=== PATIENT | male | born 1960 | race Caucasian/White ===

== ENCOUNTER → 2023-04-23 08:51 | Outpatient (BNVA) | payer OTHER, SELFPAY | PROVIDERS: Family Provider Nurse Practitioner Family; Visit Provider Nurse Practitioner Family | DX: R53.83 Other fatigue (principal); R60.9 Edema, unspecified; I10 Essential (primary) hypertension; E78.5 Hyperlipidemia, unspecified; Z78.9 Other specified health status; G47.30 Sleep apnea, unspecified; M25.50 Pain in unspecified joint; M10.9 Gout, unspecified | CPT/HCPCS: 80053; 80061; 83880; 84550; 85025 ==

== ENCOUNTER 2023-06-08 10:30 | Outpatient (CLI) | payer MEDICARE, SELFPAY | END 2023-06-08 10:31 | disposition home or self-care (01) | PROVIDERS: Family Provider Nurse Practitioner Family; PCP Nurse Practitioner Family; Visit Provider Nurse Practitioner Family | DX: G47.33 Obstructive sleep apnea (adult) (pediatric) (principal); G47.36 Sleep related hypoventilation in conditions classified elsewhere | CPT/HCPCS: G0399 ==

== ENCOUNTER → 2025-01-16 10:46 | Outpatient (BNVA) | payer MEDICARE, SELFPAY | PROVIDERS: PCP Nurse Practitioner Family; Visit Provider Nurse Practitioner Family | DX: I10 Essential (primary) hypertension (principal); I50.9 Heart failure, unspecified; R53.83 Other fatigue | CPT/HCPCS: 80053; 83880; 84403; 84443; 85025 ==

== ENCOUNTER 2025-02-06 15:45 | Outpatient (CLI) | payer MEDICARE, SELFPAY ==
--- NOTE | 2025-02-06 16:00 | USR_ITS ---
PROCEDURE INFORMATION: Exam: US Duplex Bilateral Lower Extremity Arteries Exam date and time: 02/06/2025 4:11 PM Age: 64 years old Clinical indication: Condition or disease; Peripheral vascular disease; Additional info: I73.9 - peripheral vascular disease, unspecified TECHNIQUE: Imaging protocol: Real-time ultrasound scan of the arteries of the bilateral lower extremities with 2-D stapleton scale, color Doppler flow and spectral waveform analysis. Images documented and saved. COMPARISON: No relevant prior studies available. FINDINGS: Right common femoral artery: No occlusion or significant stenosis. Normal waveform. Right superficial femoral artery: No occlusion or significant stenosis. Normal waveform. Right popliteal artery: No occlusion or significant stenosis. Normal waveform. Right calf/foot arteries: No occlusion or significant stenosis in the visualized arteries. Normal waveforms. Dorsalis pedis artery is patent. Left common femoral artery: No occlusion or significant stenosis. Normal waveform. Left superficial femoral artery: No occlusion or significant stenosis. Normal waveform. Left popliteal artery: No occlusion or significant stenosis. Normal waveform. Left calf/foot arteries: No occlusion or significant stenosis in the visualized arteries. Normal waveforms. Dorsalis pedis artery is patent. US/CV arterial duplex [facility] [id number] IMPRESSION: No stenosis or occlusion.
== END 2025-02-06 15:46 | disposition home or self-care (01) ==
LOC: RAD 15:48
PROVIDERS: PCP Nurse Practitioner Family; Visit Provider Nurse Practitioner Family
DX: I73.9 Peripheral vascular disease, unspecified (principal); R60.0 Localized edema
CPT/HCPCS: 93925

== ENCOUNTER → 2025-03-01 15:29 | Outpatient (BNVA) | payer MEDICARE, SELFPAY | PROVIDERS: PCP Nurse Practitioner Family; Visit Provider Nurse Practitioner Family | DX: Z12.5 Encounter for screening for malignant neoplasm of prostate (principal); E78.2 Mixed hyperlipidemia; N50.89 Other specified disorders of the male genital organs | CPT/HCPCS: 81000; 83880; G0103 ==

== ENCOUNTER 2025-03-06 16:06 | Outpatient (CLI) | payer MEDICARE, SELFPAY ==
--- NOTE | 2025-03-06 16:30 | US_ITS ---
WS: [id number] SCROTAL ULTRASOUND REASON FOR EXAM: N50.89 - Other specified disorders of the male genital or... COMPARISON: None available. TECHNIQUE: Grayscale and duplex color Doppler ultrasound examination of the scrotum. FINDINGS: RIGHT: Significant scrotal wall thickening with areas of interstitial fluid accumulation. Right testes measures 4.7 cm x 2.9 cm x 3.2 cm. Significant hydrocele of the right hemiscrotum. Normal blood flow within the testicle. No focal testicular lesion. Right epididymis measures 1.4 cm x 1.6 cm x 2.4 cm. Prominent blood flow. LEFT: Significant scrotal wall thickening with areas of interstitial fluid accumulation Left testes measures 4.8 cm x 2.9 cm x 3.8 cm. Significant hydrocele of the right hemiscrotum. Normal blood flow within the testicle. No focal testicular lesion. Left epididymis measures 0.8 cm x 0.8 cm x 1.6 cm. Prominent blood flow. Small cyst. US/US scrotum [id number] IMPRESSION: Bilateral epididymitis with bilateral hydrocele and significant edematous thick ening of the scrotal mosquera. Probable left epididymal spermatocele.
== END 2025-03-06 16:07 | disposition home or self-care (01) ==
PROVIDERS: PCP Nurse Practitioner Family; Visit Provider Nurse Practitioner Family
DX: N50.89 Other specified disorders of the male genital organs (principal); N45.1 Epididymitis; N43.3 Hydrocele, unspecified; N50.3 Cyst of epididymis
CPT/HCPCS: 76870

== ENCOUNTER 2025-03-09 08:48 | Outpatient (CLI) | payer MEDICARE, SELFPAY ==
[2025-03-09] MEDS: iohexol 350 mg/mL 500 mL Btl (per mL) PO (09:46)
[2025-03-09] MEDS: iohexol 350 mg/mL 500 mL Btl (per mL) IV (10:02)
--- NOTE | 2025-03-09 10:30 | CT_ITS ---
WS: [id number] CT ABDOMEN AND PELVIS WITH CONTRAST HISTORY: R10.9 - Unspecified abdominal pain TECHNIQUE: Imaging performed of the abdomen and pelvis with IV contrast. Single phase imaging of the abdomen. Coronal and sagittal reformats are submitted. All CT scans at [facility] use at least one of these dose optimization techniques: automated exposure control; mA and/or kV adjustment per patient size (includes targeted exams where dose is matched to clinical indication); or iterative reconstruction. IV CONTRAST: Omnipaque 350; 100 mL IV. Oral contrast: Yes. DLP: 1026.49 mGy.cm COMPARISON: None available. Lower thorax: Lung bases are clear. Heart is normal size. No hiatal hernia. Liver/biliary system: Normal size with no intrahepatic dilatation. Gallbladder: Normal. No gallstones or wall thickening. No pericholecystic fluid. Pancreas: Normal size pancreas and pancreatic duct. No adjacent inflammation. Spleen: Normal size spleen. No mass or infarct. Adrenal glands: Normal. Right kidney: There is very subtle area of decreased density in the lower pole cortex measuring 3.6 x 2.5 cm. The remaining kidney is negative. No perinephric stranding. Left kidney: Normal. Aorta: Mild atherosclerosis with no aneurysm. Lymphadenopathy: None. Free fluid: None. GI tract: No obstruction. Normal appendix. Mild diverticular burden in the distal colon. No acute diverticulitis. Abdominal wall: Fat containing umbilical hernia. Pelvis: Normal urinary bladder. Patent fat-containing LEFT inguinal canal. Bones: Unremarkable. CT/CT abdomen pelvis w con* [id number] IMPRESSION: 1. Subtle area of decreased attenuation lower pole RIGHT kidney. No adjacent i nflammation. Recommend ultrasound evaluation to evaluate for mass or area of is chemia. 2. No renal obstruction. 3. Atherosclerosis aorta. 4. Small umbilical hernia. 5. Fat-containing LEFT inguinal hernia. 6. No ascites or adenopathy. 7. Distal colonic diverticulosis.
== END 2025-03-09 08:49 | disposition home or self-care (01) ==
LOC: RAD 08:49
PROVIDERS: PCP Nurse Practitioner Family; Visit Provider Nurse Practitioner Family
DX: R10.9 Unspecified abdominal pain (principal); R93.421 Abnormal radiologic findings on diagnostic imaging of right kidney; I70.0 Atherosclerosis of aorta; K42.9 Umbilical hernia without obstruction or gangrene; K40.90 Unilateral inguinal hernia, without obstruction or gangrene, not specified as recurrent; K57.30 Diverticulosis of large intestine without perforation or abscess without bleeding
CPT/HCPCS: 74177

== ENCOUNTER 2025-03-28 06:52 | Outpatient (CLI) | payer MEDICARE, SELFPAY ==
--- NOTE | 2025-03-28 07:15 | USCV_ITS ---
John Alonso Age: 64 Gender: M : 1960 Exam Date: 03/28/2025 07:19 Ordering Phys: Melissa Mariano-C CHIEF CLIENT OFFICER Technologist: EDELMIRA Exam Location: [facility] [place] Indication: Edema BP: 120 / 70 HR: 81 Rhythm: Sinus Technical Quality: Adequate MEASUREMENTS (Male / Female) Normal Values 2D ECHO LV Diastolic Diameter PLAX 4.6 cm 4.2 - 5.9 / 3.9 - 5.3 cm IVS Diastolic Thickness 1.2 cm 0.6 - 1.0 / 0.6 - 0.9 cm IVS Systolic Thickness 2.2 cm LVPW Diastolic Thickness 1.5 cm 0.6 - 1.0 / 0.6 - 0.9 cm LVPW Systolic Thickness 2.3 cm LVOT Diameter 2.0 cm LV Ejection Fraction 2D Teich 53.4 % LV Ejection Fraction MOD 4C 58.8 % LV Ejection Fraction MOD 2C 45.4 % LV Ejection Fraction 2C AL 47.1 % LA Diameter 4.0 cm RA Systolic Volume 4C AL 45.4 ml RA Systolic Volume 4C MOD 45.7 ml LA Sys Volume AL 40.4 cm cubed LA Sys Volume Index AL 16.0 cm cubed/m squared Aorta at Sinotubular Diameter 3.0 cm M-MODE LA Ao Ratio MM 1.1 AV Cusp Separation MM 1.8 cm DOPPLER AV Peak Velocity 116.0 cm/s LVOT Peak Velocity 77.0 cm/s AV Area Cont Eq vti 2.3 cm squared AV Area Cont Eq pk 2.1 cm squared MV Peak Velocity 99.0 cm/s MV Area PHT 4.1 cm squared Mitral E to A Ratio 0.8 TR Peak Velocity 95.0 cm/s TR Peak Gradient 3.6 mmHg TV Peak E Velocity 75.0 cm/s PV Peak Velocity 111.0 cm/s FINDINGS Left Ventricle Normal left ventricular size, systolic function and wall thickness, with no regional wall motion abnormalities. Left ventricular ejection fraction is estimated at 60 %. Grade I/IV diastolic dysfunction (abnormal relaxation filling pattern), normal to mildly elevated filling pressures. Right Ventricle The right ventricle is normal in size and function. Right Atrium The right atrium is normal in size. Left Atrium The left atrium is normal in size. Mitral Valve Moderately thickened mitral valve. Severe mitral annular calcification. No mitral valve stenosis. Trace mitral valve regurgitation. Aortic Valve Mild aortic valve calcification. No aortic valve stenosis. Trace aortic valve regurgitation. Tricuspid Valve Structurally normal tricuspid valve without significant stenosis or regurgitation. Pulmonary artery systolic pressure is normal. Pulmonic Valve Structurally normal pulmonic valve without significant stenosis. There is no pulmonic regurgitation. Pericardium Normal pericardium without effusion. Aorta Normal ascending aorta dimension. IVC The inferior vena cava appears normal. CONCLUSIONS Normal left ventricular size, systolic function and wall thickness, with no regional wall motion abnormalities. Left ventricular ejection fraction is estimated at 60 %. Grade I/IV diastolic dysfunction (abnormal relaxation filling pattern), normal to mildly elevated filling pressures. Moderately thickened mitral valve. Severe mitral annular calcification. No mitral valve stenosis. Trace mitral valve regurgitation. Mild aortic valve calcification. No aortic valve stenosis. Trace aortic valve regurgitation. There is no pericardial effusion. Right atrial pressure is around 5 mm of mercury. Carmen Gordon MD (Electronically Signed) Final Date: 30 March 2025 15:07 S
--- NOTE | 2025-03-28 08:45 | US_ITS ---
WS: [id number] RENAL ULTRASOUND HISTORY: R93.429 - Abnormal radiologic findings on diagnostic imag... COMPARISON: CT 03/09/2025 TECHNIQUE: 2-D and color Doppler imaging of the kidney submitted. Right kidney: 11.7 cm x 5.1 cm x 5.5 cm. Cortex: 1.5 cm Normal echogenicity with no hydronephrosis or mass. Left kidney: 11.6 cm x 4.4 cm x 5.2 cm. Cortex: 1.4 cm Normal echogenicity with no hydronephrosis or mass. Aorta: Normal. Urinary Bladder: Normal distention. US/US renal BI* [id number] IMPRESSION: Normal renal ultrasound. No mass or abnormality in the RIGHT kidney as suggested by ultrasound.
== END 2025-03-28 06:53 | disposition home or self-care (01) ==
PROVIDERS: PCP Nurse Practitioner Family; Visit Provider Nurse Practitioner Family
DX: R93.421 Abnormal radiologic findings on diagnostic imaging of right kidney (principal); R60.9 Edema, unspecified; I34.0 Nonrheumatic mitral (valve) insufficiency; I34.81 Nonrheumatic mitral (valve) annulus calcification; I70.0 Atherosclerosis of aorta; I35.1 Nonrheumatic aortic (valve) insufficiency; I51.89 Other ill-defined heart diseases
CPT/HCPCS: 76770; 93306

== ENCOUNTER → 2025-04-03 11:09 | Outpatient (BNVA) | payer MEDICARE, SELFPAY | PROVIDERS: PCP Nurse Practitioner Family; Referring Provider Nurse Practitioner Family; Visit Provider Internal Medicine Cardiovascular Disease | DX: I50.32 Chronic diastolic (congestive) heart failure (principal); I70.0 Atherosclerosis of aorta; I45.10 Unspecified right bundle-branch block; R00.0 Tachycardia, unspecified; F17.290 Nicotine dependence, other tobacco product, uncomplicated; R07.9 Chest pain, unspecified; I50.9 Heart failure, unspecified; E78.2 Mixed hyperlipidemia | CPT/HCPCS: 93005; 99204 ==

== ENCOUNTER 2025-04-13 07:54 | Outpatient (CLI) | payer MEDICARE, SELFPAY ==
[2025-04-13 08:08] VITALS: BMI 34.2
--- NOTE | 2025-04-13 08:13 | NMCV_ITS ---
NM ana perf SPECT r/s* [id number] John Alonso Age: 64 Gender: M : 1960 Exam Date: 04/13/2025 08:46 Ordering Phys: Kayode Robret MD ([email or web address]) Technologist: TAPAN Cobian Exam Location: [facility] Indications: cp STRESS TEST Please see separate stress test report in [facility] for full findings IMAGE PROTOCOL Rest/Stress 1 Exercise Day Radiopharmaceutical Dose (mCi) Administration Site Administered by Rest: Tc-99m 10.7 IV Neena Henson [employer] Sestamibi Stress:Tc-99m 33 IV Neena Henson, [employer] Sestamibi Rest: 13-Apr-2025 60 Discovery 630 Stress: 13-Apr-2025 30 Discovery 630 Radiopharmaceutical was injected at 85 % maximum heart rate. Images obtained in supine and prone position. SPECT RESULTS Technical Quality: Good Raw Data Analysis: Normal Image Corrections: No attenuation or motion correction applied Summed Stress Score: 1 Summed Rest Score: 0 Summed Difference Score: 1 PERFUSION FINDINGS A small area of slightly decreased tracer uptake was noted in the mid inferolateral region. Some reversibility was noted in this area. FUNCTIONAL RESULTS (calculated via Gated SPECT) Stress Image LV EF (%): 66 Stress EDV (mL):107 TID: 0.81 Stress ESV (mL):36 FUNCTIONAL FINDINGS: Segmental wall motion analysis revealing no gross wall motion abnormalities IMPRESSIONS 1. Myocardial perfusion imaging revealing a small area of slight reversible defect in the mid inferolateral segment, suggesting ischemia in the distribution of the left circumflex artery 2. Normal LV ejection fraction of 66%. 3. LV wall motion analysis revealing no gross wall motion abnormalities. 4. Normal LV volume No similar previous studies are available for comparison Dr Angel Busch MD [facility] (Electronically Signed) Final Date: 13 April 2025 16:27 S
--- NOTE | 2025-04-13 08:13 | ECG_ITS ---
[employer] Sy-[employer] Test Date: 2025-04-13 Pat Name: John Alonso Department: Room: Gender: Male Disability Attorney: : 1960 Requested By: Kayode Robert Order Number: [id number] Ruiz MD: Angel Busch M.D. Interpretive Statements Lung unchanged pre/post procedure; Intraprocedure shortess of breath; Symptoms resoled by discharge PROCEDURE: The baseline electrocardiogram showed normal sinus rhythm with normal ST-Ts poor R wave progression. Left axis deviation. Nonspecific IVCD.. At the baseline, the patient's blood pressure was 131/82 mm Hg with a heart rate of 74. The patient exercised for 6 minutes and 47 seconds on a standard Sekou protocol. Patient attained a maximum heart rate of 134 beats per minute(87% of the maximum predicted heart rate) with a blood pressure at the peak exercise of 184/81 mm Hg. The EKG at the peak exercise revealed no significant changes. Patient did not have any chest pain or any significant arrhythmis with the exercise Sestamibi was injected 1 minute prior to the peak exercise-33 mCi During the recovery phase, there were no new changes. Blood pressure at the end of the recovery phase was 155/95 mm Hg with a heart rate of 103 per minute. CONCLUSION: 1. No significant EKG changes with the [treadmill exercise 2. No exercise-induced chest pain or cardiac arrhythmia 3. Slightly impaired exercise tolerance, attained a maximum of 7.0 METs 4. Sestamibi/Sestamibi perfusion results pending; see separate report. Electronically Signed On 04-18-2025 10:03:39 CDT by Angel Busch M.D. [email or web address]
[2025-04-13 09:54] VITALS: BP 155/95; PULSE 102
== END 2025-04-13 07:55 | disposition home or self-care (01) ==
LOC: CDL 07:56
PROVIDERS: PCP Nurse Practitioner Family; Visit Provider Internal Medicine Cardiovascular Disease
DX: I50.9 Heart failure, unspecified (principal)
CPT/HCPCS: 36415; 78452; 93017; A9500

== ENCOUNTER 2025-04-25 16:24 | Outpatient (CLI) | payer MEDICARE, SELFPAY | END 2025-04-25 16:25 | disposition home or self-care (01) | LOC: SLEEP 16:25 | PROVIDERS: PCP Nurse Practitioner Family; Referring Provider Nurse Practitioner Family; Visit Provider Internal Medicine Pulmonary Disease | DX: G47.33 Obstructive sleep apnea (adult) (pediatric) (principal); G47.36 Sleep related hypoventilation in conditions classified elsewhere | CPT/HCPCS: G0399 ==

== ENCOUNTER → 2025-05-31 15:28 | Outpatient (BNVA) | payer MEDICARE, SELFPAY | PROVIDERS: PCP Nurse Practitioner Family; Visit Provider Internal Medicine Cardiovascular Disease | DX: I50.9 Heart failure, unspecified (principal); E78.2 Mixed hyperlipidemia | CPT/HCPCS: 80048; 80061; 83880 ==

== ENCOUNTER → 2025-06-05 09:57 | Outpatient (BNVA) | payer MEDICARE, SELFPAY | PROVIDERS: PCP Nurse Practitioner Family; Visit Provider Internal Medicine Cardiovascular Disease | DX: I11.0 Hypertensive heart disease with heart failure (principal); I50.30 Unspecified diastolic (congestive) heart failure; I70.0 Atherosclerosis of aorta; E78.5 Hyperlipidemia, unspecified; G47.33 Obstructive sleep apnea (adult) (pediatric); Z99.89 Dependence on other enabling machines and devices; Z72.0 Tobacco use; R94.39 Abnormal result of other cardiovascular function study | CPT/HCPCS: 99214 ==

== ENCOUNTER 2025-07-17 13:30 | Outpatient (CLI) | payer MEDICARE, SELFPAY ==
--- NOTE | 2025-07-17 13:15 | USCV_ITS ---
Gavin, John Age: 65 Gender: M : 1960 Exam Date: 07/17/2025 14:04 Ordering Phys: Melissa Mariano Technologist: NINA [place] [facility] [place]: hypertension Aortic Velocity @ SMA (cm/s) 60 RIGHT KIDNEY LEFT KIDNEY Velocity (cm/s) Velocity (cm/s) Sys/Mcintyre Sys/Mcintyre Resistive Index Resistive Index 83.0 / 25.4 0.69 Proximal Renal Artery 19.4 / 12.0 0.38 34.4 / 15.1 0.56 Mid Renal Artery 18.7 / 11.5 0.38 78.5 / 23.7 0.70 Distal Renal Artery 19.1 / 11.5 0.39 45.9 / 20.7 0.55 Hilar 20.5 / 6.5 0.67 19.9 / 7.1 0.64 Upper Pole 12.4 / 6.3 0.50 19.1 / 6.1 0.68 Mid Pole 11.8 / 6.7 0.43 16.3 / 7.3 0.55 Lower Pole 20.1 / 13.8 0.31 1.38 Renal Aortic Ratio 3.09 Accleration Time (sec) 0.04 Hilar 0.14 0.06 Upper Pole 0.10 0.05 Mid Pole 0.12 0.05 Lower Pole 0.08 11.9 Kidney Length (cm) 10.7 FINDINGS Comparaison: CT 03/09/25 No evidence of abdominal aortic aneurysm. Technically poor evaluation of renal arteries. Venous contamination in the arteries flow. Abnormal left renal to aorta ratio but no elevation of renal artery velocity. CONCLUSIONS Technically limited evaluatin renal arteries. Recommend CTA renal arteries. Dr. Little Ruiz DO (Electronically Signed) Final Date: 17 July 2025 15:13 S
== END 2025-07-17 13:31 | disposition home or self-care (01) ==
LOC: RAD 13:31
PROVIDERS: PCP Nurse Practitioner Family; Visit Provider Nurse Practitioner Family
DX: I10 Essential (primary) hypertension (principal)
CPT/HCPCS: 93975

== ENCOUNTER 2025-07-27 15:26 | Outpatient (CLI) | payer MEDICARE, SELFPAY ==
--- NOTE | 2025-07-27 15:30 | CTR_ITS ---
PROCEDURE INFORMATION: Exam: CTA Abdomen and Pelvis With Contrast Exam date and time: 07/27/2025 4:14 PM Age: 65 years old Clinical indication: Primary hypertension; Additional info: I10 - essential (primary) hypertension, renal arteries TECHNIQUE: Imaging protocol: Computed tomographic angiography of the abdomen and pelvis with contrast. Exam focused on the arteries. 3D rendering (Not supervised by radiologist): MIP and/or 3D reconstructed images were created by the technologist. Radiation optimization: All CT scans at this facility use at least one of these dose optimization techniques: automated exposure control; mA and/or kV adjustment per patient size (includes targeted exams where dose is matched to clinical indication); or iterative reconstruction. Contrast material: OMNIPAQUE 350; Contrast volume: 100 ml; Contrast route: INTRAVENOUS (IV); COMPARISON: CT abdomen pelvis w con* [id number] 03/09/2025 9:59 AM RADIATION DOSE METRICS: Total DLP (mGy-cm): 882.29 FINDINGS: Lungs: Small pulmonary cysts in the visualized lungs. Mild bibasilar atelectasis. Aorta: Intimal calcifications. Mild ectasia of the infrarenal aorta. No aortic aneurysm. No aortic dissection. Celiac and mesenteric arteries: No occlusion or significant stenosis. Renal arteries: Severe stenosis of the left renal artery ostium. The right renal artery is patent without significant stenosis or occlusion. 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 No occlusion or significant stenosis. Left iliac arteries: Fusiform aneurysmal dilatation of the common iliac artery up to 1.8 cm. No occlusion or significant stenosis. Liver: Unremarkable. No abnormally enhancing liver lesions. Gallbladder and biliary ducts: Unremarkable. No radiopaque cholelithiasis. No biliary ductal dilatation. Pancreas: Unremarkable. No pancreatic ductal dilatation. Spleen: Unremarkable. Adrenal glands: Mild nonspecific bilateral adrenal thickening. Kidneys and ureters: The left kidney is asymmetrically small and hypoenhancing. No hydronephrosis. Bilateral renal cortical hypoattenuating foci too small to characterize. Stomach and bowel: The stomach is unremarkable. No bowel obstruction. Appendix: Appendix is unremarkable. Intraperitoneal space: No ascites or intraperitoneal free air. Lymph nodes: No abdominal or pelvic adenopathy. Urinary bladder: The urinary bladder is underdistended, limiting its evaluation. Reproductive: Prostate gland is unremarkable. Bones/joints: No acute fracture. Degenerative changes of the spine and left sacroiliac joint. Soft tissues: Small bilateral fat-containing inguinal hernias. Small fat-containing umbilical hernia. CT/CT angio abdomen pelvis [id number] IMPRESSION: 1. Severe left renal artery stenosis at the ostium. 2. No right renal artery stenosis.
[2025-07-27 16:05] LABS: Blood Urea Nitrogen 22 mg/dL (8-23)
[2025-07-27] MEDS: iohexol 350 mg/mL 500 mL Btl (per mL) IV (16:21)
== END 2025-07-27 15:27 | disposition home or self-care (01) ==
LOC: RAD 15:26
PROVIDERS: PCP Nurse Practitioner Family; Visit Provider Nurse Practitioner Family
DX: I10 Essential (primary) hypertension (principal); I70.1 Atherosclerosis of renal artery; J98.4 Other disorders of lung; J98.11 Atelectasis; I70.0 Atherosclerosis of aorta; I77.819 Aortic ectasia, unspecified site; I72.8 Aneurysm of other specified arteries; E27.8 Other specified disorders of adrenal gland; N28.89 Other specified disorders of kidney and ureter; M47.9 Spondylosis, unspecified; M46.1 Sacroiliitis, not elsewhere classified; K40.20 Bilateral inguinal hernia, without obstruction or gangrene, not specified as recurrent; K42.9 Umbilical hernia without obstruction or gangrene
CPT/HCPCS: 74174; 82565; 84520

== ENCOUNTER 2025-08-09 05:49 | Outpatient (CLI) | payer MEDICARE, SELFPAY ==
[2025-08-09] VITALS (16 sets, daily range): BP systolic 128–164; BP diastolic 60–95; PULSE 61–82; RESP 16–21; TEMP 36.6; O2SAT 92–97; BMI 33.9
--- NOTE | 2025-08-09 06:00 | XACV_ITS ---
Exam Room: 2 Ht: 188 cm Wt: 120 kg BSA: 2.54 m2 Gender: Male : 1960 Any Known Allergies: No known allergies Exam Priority: Routine Procedure(s): Procedure Description: Diagnostic procedure Procedure Description: Left Heart Catheterization Procedure Description: Coronary Angiography Procedure Description: Pressure Wire Diagnostic Cath Status: Elective Diagnostic Findings * INDICATION: Congestive heart failure/abnormal stress test. * Left Main is large sized. No significant stenosis. * Circumflex has mild luminal irregularities. * Right Coronary Artery has mild to moderate luminal irregularities. * Mid Left Anterior Descending: moderate 50% stenosis, ZHANNA: 3 flow. * Coronary angiography shows right dominance. PCI Status: Elective Interventional Findings * Procedure detail: We engaged left main artery with XB 3.5 guide catheter. IV heparin was administered to maintain anticoagulation. iFR of mid LAD was performed that showed a value of 0.96. As this is non-ischemic, we proceeded with medical therapy. Patient left the laborer/grade check in a stable condition. . Conclusions 1. Moderate mid LAD stenosis. S/p iFR that was non-ischemic. Recommendations * Aggressive medical therapy for coronary artery disease. * Outpatient cardiology follow up in 2-4 weeks. Interventional RX Recommendation: medical therapy and/or counseling Anticoagulation: Heparin Pressures Phase:Rest AO : 113 / 81 ( 98 ) @ 8:00:00 AM 131 / 72 ( 96 ) @ 8:04:00 AM 135 / 74 ( 99 ) @ 8:04:00 AM LV : 150 / -13 / 13 @ 8:04:00 AM 142 / -10 / 13 @ 8:04:00 AM Valves Phase:DefaultPhase AV : 7.0 @ 8:16:36 AM AV Mean Gradient: 20.0 @ 8:16:36 AM Clinical Evaluation EBL: 5mL-10mL Procedural Details Procedure Consent Obtained. Pre-Procedure Time Out. Identified patient by full name and date of as verbalized by the patient/guarantor. Does the consent match the physician's order: Yes. Accurate & Complete Informed Consent: Yes. Inpatient/Outpatient History & Physical on Chart: Yes. If H&P is completed, is and addenduem needed: No. Visualize and Verify Site with Patient/Guarantor: N/A. Relevant Radiology Images available: Yes. The risks, benefits, and alternatives of sedation and/or procedure were discussed by physician. The patient agrees to continue. Procedure started. [facility] Clinical Fraility Score: 3: Managing Well. 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 Chest Pain Symptom Assessment: Typical Angina Symptoms. Cardiovascular Instability: No. Correct patient, site and procedure confirmed by cath team. PERRLA. 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 Lungs clear x 5 lobes. IV Site on Arrival: 20 gauge in the right anticubital. IV Fluids: 0.9% NaCl at KVO. 0 mL infused prior to laborer/grade check. Pre Procedural Pulses: bilateral dorsalis pedis was Doppled. Pre Procedural Pulses: bilateral posterior tibial was Doppled. Pre Procedural Pulses: bilateral radial was 3+. Oxygen started at 2liters/min via nasal canula. right groin was prepped with chloroprep then draped in the usual sterile fashion. right radial was prepped with chloroprep then draped in the usual sterile fashion. Physician notified. Baseline sample Acquired. HR: 68 BPM. Patient's family unavailable. The patient requests that Dr. Hughes call his contact, Delta, at [phone] at the completion of the procedure. Equipment: 6F - Radial. Cardiac Cath Pack. ACIST Manifold Kit Model BT 2000. Heparinized Saline (2 units/mL), 1000 mL bag. Physician arrived. Physician scrubbed in. Immediate Pre-Procedure Time Out. Correct Patient: Yes; Correct Procedure: Yes; Correct Site: Yes; Correct Patient Position: Yes; Correct Supplies: Yes; Dried Flammable Prep: Yes; Blood Products Available: No. Lidocaine 1% infiltrated to the right radial. Arterial access obtained. Multiple views taken of left coronary artery. Catheter redirected to the RCA. Multiple views taken of right coronary artery. Catheter redirected to the LV. EDP Sample taken: LV 150/-14,13; HR: 69 BPM; SpO2: 97%. Pullback taken: LV 142/-11,13; AO 131/72(96); Mean: 20mmHg, Peak to Peak: 7mmHg, SEP: 7sec/min; HR: 67 BPM; SpO2: 97%. Catheter removed over the exchange J wire. 6 indonesian XB 3.5 guide catheter was inserted over the exchange J wire. iFR guidewire was advanced through the guide catheter to lesion in the mid LAD. iFR spot of the mid LAD = 0.96 with a pullback of 0.96. iFR wire out. Guide catheter out over the exchange wire. Dr. Hughes scrubbed out. A TR Band was successful obtaining hemostatsis at the Right Radial artery insertion site. Post Procedure: Pulses reassessed and unchanged. PERRLA. 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 No VTE prophylaxis required. Medication's Wasted: Lidocaine 1% = 18 mL. Medication's Wasted: Nitro = 49.8 mg. Medication's Wasted: Heparin = 1000 units. Medication's Wasted: Other = Versed 1 mg. Medication's Wasted: Other = Fentanyl 50 mcg. Total IV fluids: 264 mL. Post-op diagnosis: Moderate mid LAD stenosis with normal iFR. Complications: none. Estimated blood loss: 5mL-10mL. Responsiveness - Normal response to verbal stimuli; alert and oriented, PERRLA. Vital chart was stopped. Airway - Unaffected, no intervention required; spontaneous ventilation. Circulation: W/N/L, pulses unchanged. Nausea/Vomiting: No. Procedure completed. Patient transferred by wheelchair to CPRU. Access Site Site: Right Radial artery Sheath Size: 6 Fr Hemostasis Method: TR Band Hemostasis Success: Successful Procedure Medications Start: 7:54 AM Stop: 7:54 AM Medication: 0.9% Saline Amount: 250 ml Route: I.V. bolus Start: 7:54 AM Stop: 7:54 AM Medication: Versed Amount: 1 mg Route: I.V. Start: 7:54 AM Stop: 7:54 AM Medication: Fentanyl Amount: 50 mcg Route: I.V. Start: 7:57 AM Stop: 7:57 AM Medication: Nitrogylcerin Amount: 200 mcg Route: I.A. Start: 8:00 AM Stop: 8:00 AM Medication: Heparin Amount: 5000 units Route: I.V. Start: 8:05 AM Stop: 8:05 AM Medication: Heparin Amount: 5000 units Route: I.V. I, the attending physician, have reviewed and verified all procedure medications. Yes, all medications given per verbal order History/Risk Factors Hypertension: Yes Dyslipidemia: Yes Peripheral Arterial Disease (PAD): No Myocardial Infarction ([place]): No Obesity: Yes Renal Disease: No Tobacco Use: Current/Recent(w/in 1 year) Prior Interventions PCI: No CABG: No Valve Surgery: No Report Signatures Finalized by Ari Hughes MD on 08/26/2025 10:30 AM
[2025-08-09 06:19] LABS: Hematocrit 48.6 % (37-53); Hemoglobin 16.00 g/dL (11.27-16.99); Mean Corpuscular HGB Conc 32.9 g/dL (30-55); Mean Corpuscular Hemoglobin 27.9 pg (27-33); Mean Corpuscular Volume 84.7 fl (82-101); Nucleated Red Blood Cells % 0 %; Platelet Count 248 10^3/cmm (157-399); Red Blood Count 5.74 10^6/uL (3.85-5.65); White Blood Count 7.92 10^3/uL (3.29-11.43)
[2025-08-09 06:37] LABS: Anion Gap 14.6 (5-19); Blood Urea Nitrogen 26 mg/dL (8-23); Calcium 9.6 mg/dL (8.5-10.5); Carbon Dioxide 27 mmol/L (22-29); Chloride 103 mmol/L (98-107); Glucose 106 mg/dL (65-115); Osmolality Calculated 295 mOsm/kg (285-295); Potassium 4.6 mmol/L (3.5-5.1); Sodium 140 mmol/L (136-145)
--- NOTE | 2025-08-09 07:44 | P.HP_ITS ---
Providers/Chief Complaint 2 Primary Care Provider: JUAN JOSE Douglas Chief Complaint: Congestive heart failure History of Present Illness John Alonso is a 65 year old male with diastolic congestive heart failure and abnormal stress test. With diuresis feeling better. Referred for left heart cath Review of Systems 2 Card: Reports: dyspnea on exertion Medications/Allergies Home Medications ?Medication ?Instructions ?Recorded ?Confirmed ?Last Taken ?Type aspirin 81 mg tablet,delayed 81 mg PO DAILY #90 tabs 0 04/03/25 08/09/25 08/09/25 04:30 Rx release (Adult Aspirin Regimen) tadalafil 5 mg tablet (Cialis) 5 mg PO DAILY PRN Sexua l Activity 04/03/25 08/09/25 Unknown History CPAP and supplies #1 ea 05/10/25 08/09/25 Unkn own Rx CPAP (Standard Cpap) 06/05/25 08/09/25 Unknown H istory carvedilol 6.25 mg tablet (Coreg) 6.25 mg PO BID #60 t abs 07/25/25 08/09/25 08/09/25 04:30 Rx lisinopril 5 mg tablet 5 mg PO BID #30 tabs 5 08/09/25 08/09/25 04:30 Rx furosemide 20 mg tablet 20 mg PO DAILY 08/09/2511/2908/08/25 History Allergies Allergy/AdvReac Type Severity Reaction Status Date / Time No Known Allergies Allergy Verified 08/08/25 09:10 PFSH Acute 2 PFSH: Medical History No pertinent past medical history Surgical History No pertinent past surgical history Family History Mother Diabetes Stroke Brother Diabetes Daughter Diabetes Father Hypertension Denies family history of CAD (coronary artery disease) Hyperlipidemia Chronic kidney disease (CKD) Suicide Lung disease Cancer Social History Smoking and tobacco/nicotine status: current every day tobacco/nicotine user cigars Alcohol intake: never Substance/Drug Use: never Adopted: No Caregiver/support person: No Lives independently: No Household members: spouse Marital status: service: No Sexually active: Yes Do you think of yourself as: Straight/Heterosexual Current gender identity: Male Vitals/I&O/Wt Last Vital Signs Temp 97.9 F 08/09/25 06:04 Pulse 75 08/09/25 06:04 Resp 18 08/09/25 06:04 BP 159/89 08/09/25 06:04 Pulse Ox 93 08/09/25 06:04 O2 Del Method Room Air 08/09/25 06:04 Weight last 48 hrs Weight 264 lb Weight 264 lb Physical Exam 2 Narrative: GENERAL: Patient is alert, awake and oriented x3. HEART: Regular S1 and S2. No murmur, rub or gallop. LUNGS: Diminished air entry bilaterally CENTRAL NERVOUS SYSTEM: Grossly nonfocal. EXTREMITIES: Lower extremities with 1+ edema. Data 08/09/25 06:13 08/09/25 06:13 A&P Assessment and plan 1. Chronic heart failure with preserved ejection fraction: 2. Abnormal stress test: Plan: Patient has abnormal stress test and diastolic congestive heart failure. Will proceed with left heart cath with possible PCI. Risks and benefits of the procedure been discussed in detail. Patient understands these and wants to proceed. PDMP PDMP Reviewed: Not Reviewed Attestations 2 Medical Necessity Statement*: Care not expected to cross 2 midnights. Coding Level of Care Code Acute Code for Chg Fwd Diagnoses Chronic heart failure with preserved ejection fraction I50.32 Abnormal stress test R94.39
--- NOTE | 2025-08-09 08:19 | PM.PROC ---
Procedure Note: Date of procedure: 08/09/25 Pre-procedure diagnosis: Congestive heart failure/abnormal stress test Post-procedure diagnosis: other (Moderate mid LAD stenosis s/p iFR that is normal ) Procedure: Mid LAD has 40 to 50% stenosis. iFR was performed that is nonischemic with a value of 0.96. LVEDP is 13 Medical therapy. IV fluids for 4-5 hours Outpatient BMP next week Performing Provider: Ari Hughes Complications: None Condition: stable Disposition: same day Coding Level of Care Code Acute Code for [place]
--- NOTE | 2025-08-09 08:30 | PC.NURSE ---
Assumed care from Mary Alice Pacheco RN.
--- NOTE | 2025-08-09 09:30 | PC.NURSE ---
Letting the air out of the TR band per protocol. No other assessment changes noted at this time. Patient resting while watching TV.
--- NOTE | 2025-08-09 10:55 | PC.NURSE ---
TR band off per protocol. Right wrist area cleansed with warm water and patted dry. A large band aid was applied to the site and loosely secured with coban. No bleeding or hematoma noted. Palpable radial pulse. Patient tolerated well.
== END 2025-08-09 13:35 | disposition home or self-care (01) ==
PROVIDERS: PCP Nurse Practitioner Family; Visit Provider Internal Medicine
DX: I50.32 Chronic diastolic (congestive) heart failure (principal); I25.10 Atherosclerotic heart disease of native coronary artery without angina pectoris; I11.0 Hypertensive heart disease with heart failure; E78.5 Hyperlipidemia, unspecified; E66.9 Obesity, unspecified; Z68.33 Body mass index [BMI] 33.0-33.9, adult; F17.290 Nicotine dependence, other tobacco product, uncomplicated; Z82.49 Family history of ischemic heart disease and other diseases of the circulatory system; Z79.82 Long term (current) use of aspirin; Z99.89 Dependence on other enabling machines and devices
CPT/HCPCS: 36415; 80048; 85025; 93458; 93571; 99152; 99153; C1769; C1887; C1894; J1644; J2250; J3010; J3490; J7030; J9999; Q0163; Q9967

== ENCOUNTER → 2025-08-23 15:22 | Outpatient (BNVA) | payer MEDICARE, SELFPAY | PROVIDERS: PCP Nurse Practitioner Family; Visit Provider Nurse Practitioner Family | DX: I10 Essential (primary) hypertension (principal) | CPT/HCPCS: 80053 ==

== ENCOUNTER → 2025-08-24 14:03 | Outpatient (BNVA) | payer MEDICARE, SELFPAY | PROVIDERS: PCP Nurse Practitioner Family; Visit Provider Nurse Practitioner Family | DX: I11.0 Hypertensive heart disease with heart failure (principal); I50.32 Chronic diastolic (congestive) heart failure; E78.5 Hyperlipidemia, unspecified; Z72.0 Tobacco use; I25.10 Atherosclerotic heart disease of native coronary artery without angina pectoris | CPT/HCPCS: 99214 ==